=== PATIENT | male | born 1970 | race Caucasian/White ===

== ENCOUNTER 2016-10-08 14:36 | Emergency (ER) | payer OTHER | END 2016-10-08 19:54 | disposition critical access hospital (66) | LOC: ER 14:36 | DX: I48.91 Unspecified atrial fibrillation (principal); E11.9 Type 2 diabetes mellitus without complications; I50.9 Heart failure, unspecified; Z79.01 Long term (current) use of anticoagulants; Z79.899 Other long term (current) drug therapy; Z88.5 Allergy status to narcotic agent | CPT/HCPCS: 36415; 96365; 96366; 96375; J1160; J2060 ==

== ENCOUNTER 2016-10-08 14:36 | Inpatient (IN) | payer OTHER ==
[~2016-10-08] VITALS: Ht 185.4 cm; Wt 76.4 kg
== END 2016-10-10 10:40 | disposition home or self-care (01) | DRG 308 ==
LOC: ER 14:36 → ICU 19:55
PROVIDERS: ADMIT Internal Medicine
DX: I48.91 Unspecified atrial fibrillation (principal); I50.23 Acute on chronic systolic (congestive) heart failure; F10.239 Alcohol dependence with withdrawal, unspecified; Z79.01 Long term (current) use of anticoagulants; F17.210 Nicotine dependence, cigarettes, uncomplicated; R73.9 Hyperglycemia, unspecified; Z88.5 Allergy status to narcotic agent; Z79.899 Other long term (current) drug therapy; Z81.1 Family history of alcohol abuse and dependence
CPT/HCPCS: 36415; 93306; 97161-GP; 97165; J1160; J2060; J7030